=== PATIENT | female | born 1950 | race Caucasian/White ===

== ENCOUNTER 2021-01-21 14:01 | Emergency (ER) | payer BC, SELFPAY ==
[2021-01-21 14:30] VITALS: BP 150/100; PULSE 86; RESP 16; TEMP 36.6; O2SAT 98; BMI 33.2
== END 2021-01-21 15:58 | disposition left against medical advice (07) ==
PROVIDERS: Emergency Provider Emergency Medicine
DX: R30.0 Dysuria (principal)
CPT/HCPCS: 99281; 99282